=== PATIENT | male | born 1995 | race African-American/Black ===

== ENCOUNTER 2021-04-27 23:07 | Emergency (ER) | payer SELFPAY ==
[2021-04-28 00:43] LABS: BILIRUBIN Negative (Negative); BLOOD Negative (Negative); CLARITY Turbid (Clear); COLOR Yellow (Yellow); GLUCOSE Negative (Negative); KETONE Trace (Negative); LEUKO ESTERASE 3+ (Negative); NITRITE Negative (Negative); SPECIFIC GRAVITY 1.025 (1.001-1.030)
[2021-04-28 00:54] LABS: BACTERIA TRACE; WBC TNTC wbc/hpf (0-5)
[2021-04-28] MEDS ORDERED: 'CIPRO500 M1 PO (01:37)
== END 2021-04-28 01:45 | disposition home or self-care (01) ==
LOC: ED 23:07
PROVIDERS: Physician Assistant
DX: A64 Unspecified sexually transmitted disease (principal); N39.0 Urinary tract infection, site not specified